=== PATIENT | male | born 1975 | race African-American/Black ===

== ENCOUNTER 2016-10-31 17:05 | Emergency (ER) | payer OTHER ==
[2016-10-31 18:08] LABS: Hematocrit 44 % (42-52); Hemoglobin 13.8 g/dl (14.0-18.0); Mean Corpuscular HGB Conc 31 g/dl (31-36); Mean Corpuscular Hemoglobin 24 pg (27-31); Mean Corpuscular Volume 77 fL (80-94); Mean Platelet Volume 8 um3 (7.4-10.4); Red Blood Count 5.71 10^6/ul (4.0-5.4); Red Cell Distribution Width 14 % (10.5-15); White Blood Count 6.2 10^3/ul (3.5-10.8)
[2016-10-31 18:24] LABS: ALT 61 U/L (7-52); AST 28 U/L (13-39); Albumin 4.1 g/dL (3.2-5.2); Alkaline Phosphatase 72 U/L (34-104); Anion Gap 6 mmol/L (2-11); Blood Urea Nitrogen 17 mg/dL (6-24); C Reactive Protein 6.03 mg/L (< 5.00); CO2 Carbon Dioxide 28 mmol/L (22-32); Calcium 9.9 mg/dL (8.6-10.3); Chloride 100 mmol/L (101-111); EGFR African American 76.8 (>60); EGFR Non-African American 59.7 (>60); Globulin 3.3 g/dL (2-4); Glucose 101 mg/dL (70-100); Lipase < 10 U/L (11.0-82.0); Potassium 4.7 mmol/L (3.5-5.0); Sodium 134 mmol/L (133-145); Total Protein 7.4 g/dL (6.4-8.9)
--- NOTE | 2016-10-31 19:20 | RAD ---
Indication: Left flank pain CT of the abdomen and pelvis was performed without oral or IV contrast administration. Coronal and sagittal reconstructed images were obtained. Lung bases demonstrate right middle lobe consolidative changes. This may represent an right middle lobe atelectasis. No pleural fluid is identified. Heart is of normal size without evidence of pericardial effusion. Liver is normal size. No focal lesions or intrahepatic ductal dilatation is noted. Gallbladder demonstrates no calcified gallstones. Pancreas demonstrates no mass or pancreatic ductal dictation. Spleen is normal in size. No adrenal lesions are noted. The kidneys demonstrate no hydronephrosis. There is a low density lesion in the left kidney measuring up to 15 mm. The retroperitoneal lymphadenopathy is noted. No dilated loops of bowel are noted. The left ureter shows no evidence of hydroureter. CT of the pelvis demonstrates no evidence pelvic adenopathy. Urinary bladder is partially collapsed. No hernias are noted. No dilated loops of bowel are noted. The visualized bony structures are grossly unremarkable. IMPRESSION: There is suggestion of some right middle lobe atelectasis. No evidence of obstructive uropathy is noted.
[2016-10-31 19:54] VITALS: BP 125/79
--- NOTE | 2016-10-31 22:03 | ED ---
Herman Castro Salem, scribed for Eliceo Hatch MD on 10/31/16 at 1743 . Abdominal Pain/Male - HPI Summary HPI Summary: Patient is a 41 y/o M who presents to the ED per EMS with intermittent dull LLQ abd pain for the past 3 weeks. He reports intermittent diarrhea since onset, and N/V and gas this morning, but denies pain with urination. He states that pain is sometimes in his rectum and feels like he needs to use the bathroom. Per EMS, they were called for respiratory distress, but complaint was changed upon arrival. He states that he was recently seen at [facility] where he had a stool sample examined and is yet to hear results. Pt was also admitted for severe depression in [place] and put on Wellbutrin. - History of Current Complaint Chief Complaint: EDAbdPain Stated Complaint: PAIN UPPER LT QUAD Time Seen by Provider: 10/31/16 17:34 Hx Obtained From: Patient Onset/Duration: Gradual Onset, Lasting Weeks, Still Present Timing: Intermittent Severity Initially: Moderate Severity Currently: Moderate Pain Intensity: 6 Pain Scale Used: 0-10 Numeric Location: Discrete At: LUQ, Discrete At: LLQ, Other - Rectum. Radiates: No Character: Dull Aggravating Factor(s): Nothing Alleviating Factor(s): Nothing Associated Signs And Symptoms: Positive: Nausea, Vomiting, Diarrhea - Allergies/Home Medications Allergies/Adverse Reactions: Allergies Allergy/AdvReac Type Severity Reaction Status Date / Time No Known Allergies Allergy Verified 03/18/16 18:43 PMH/Surg Hx/FS Hx/Imm Hx Endocrine/Hematology History: Denies: Hx Diabetes, Hx Thyroid Disease Cardiovascular History: Denies: Hx Hypertension Respiratory History: Denies: Hx Asthma, Hx Chronic Obstructive Pulmonary Disease (COPD) GI History: Denies: Hx Ulcer History: Denies: Hx Renal Disease Infectious Disease History: No Infectious Disease History: Reports: Hx Hepatitis - UNSURE OF TYPE Denies: Hx Human Immunodeficiency Virus (HIV), Traveled Outside the [place] in Last 30 Days - Family History Known Family History: Positive: Cardiac Disease - sister , Hypertension, Diabetes - Social History Alcohol Use: Weekly Hx Substance Use: No Substance Use Type: Reports: None Hx Tobacco Use: Yes Smoking Status (MU): Current Some Day Smoker Type: Cigarettes Amount Used/How Often: 4 CIGARETTES/ DAY Length of Time of Smoking/Using Tobacco: 15 YEARS Have You Smoked in the Last Year: Yes Review of Systems Positive: Other - Eye complaint. Positive: Abdominal Pain, Vomiting, Diarrhea, Nausea, Other - Gas. Genitourinary: Other - No pain with urination. Positive: no symptoms reported, other - Pain in rectum. All Other Systems Reviewed And Are Negative: Yes Physical Exam Triage Information Reviewed: Yes Vital Signs On Initial Exam: Initial Vitals Temp Pulse Resp BP Pulse Ox 99.0 F 92 18 130/84 100 10/31/16 17:12 10/31/16 17:12 10/31/16 17:12 10/31/16 17:12 10/31/16 17:12 Vital Signs Reviewed: Yes Appearance: Positive: Well-Appearing, No Pain Distress, Obese Skin: Positive: Warm, Skin Color Reflects Adequate Perfusion, Dry Head/Face: Positive: Normal Head/Face Inspection Eyes: Positive: Normal Neck: Positive: Supple, Nontender Respiratory/Lung Sounds: Positive: Clear to Auscultation, Breath Sounds Present Cardiovascular: Positive: RRR Abdomen Description: Positive: Soft, Other: - LLQ tenderness. Bowel Sounds: Positive: Present Musculoskeletal: Positive: Normal Neurological: Positive: Normal Psychiatric: Positive: Normal, Affect/Mood Appropriate - [place] Coma Scale Coma Scale Total: 15 Diagnostics - Vital Signs Vital Signs Temp Pulse Resp BP Pulse Ox 10/31/16 17:21 100 14 100 10/31/16 17:19 130/84 10/31/16 17:12 99.0 F 92 18 130/84 100 - Laboratory Lab Results: Lab Results 10/31/16 10/31/16 10/31/16 Range/Units 18:00 18:00 18:00 WBC 6.2 (3.5-10.8) 10^3/ul RBC 5.71 H (4.0-5.4) 10^6/ul Hgb 13.8 L (14.0-18.0) g/dl Hct 44 (42-52) % MCV 77 L (80-94) fL MCH 24 L (27-31) pg MCHC 31 (31-36) g/dl RDW 14 (10.5-15) % Plt Count 283 (150-450) 10^3/ul MPV 8 (7.4-10.4) um3 Neut % (Auto) 75.6 (38-83) % Lymph % (Auto) 17.4 L (25-47) % [place] % (Auto) 6.3 (1-9) % Eos % (Auto) 0.3 (0-6) % Baso % (Auto) 0.4 (0-2) % Absolute Neuts (auto) 4.7 (1.5-7.7) 10^3/ul Absolute Lymphs (auto) 1.1 (1.0-4.8) 10^3/ul Absolute Monos (auto) 0.4 (0-0.8) 10^3/ul Absolute Eos (auto) 0 (0-0.6) 10^3/ul Absolute Basos (auto) 0 (0-0.2) 10^3/ul Absolute Nucleated RBC 0 10^3/ul Nucleated RBC % 0 Sodium 134 (133-145) mmol/L Potassium 4.7 (3.5-5.0) mmol/L Chloride 100 L (101-111) mmol/L Carbon Dioxide 28 (22-32) mmol/L Anion Gap 6 (2-11) mmol/L BUN 17 (6-24) mg/dL Creatinine 1.31 H (0.67-1.17) mg/dL Est GFR ( Amer) 76.8 (>60) Est GFR (Non-Af Amer) 59.7 (>60) BUN/Creatinine Ratio 13.0 (8-20) Glucose 101 H (70-100) mg/dL Lactic Acid 1.5 (0.5-2.0) mmol/L Calcium 9.9 (8.6-10.3) mg/dL Total Bilirubin 0.30 (0.2-1.0) mg/dL AST 28 (13-39) U/L ALT 61 H (7-52) U/L Alkaline Phosphatase 72 (34-104) U/L C-Reactive Protein 6.03 H (< 5.00) mg/L Total Protein 7.4 (6.4-8.9) g/dL Albumin 4.1 (3.2-5.2) g/dL Globulin 3.3 (2-4) g/dL Albumin/Globulin Ratio 1.2 (1-3) Lipase < 10 L (11.0-82.0) U/L Result Diagrams: 10/31/16 18:00 10/31/16 18:00 Lab Statement: Any lab studies that have been ordered have been reviewed, and results considered in the medical decision making process. - CT Abd/pelvis CT Interpretation Completed By: Radiologist - IMPRESSION: There is suggestion of some right middle lobe atelectasis. No evidence of obstructive uropathy is noted. Re-Evaluation - Re-Evaluation First Eval Re-Evaluation Time: 19:35 Comment: Reviewed labs and imaging with pt. Abdominal Pain Fem Course/Dx - Course Course Of Treatment: Mr. Whaley presented with vague abdominal pain that was in the LLQ for several weeks. His W/U was negative including CT and he was D/C' d to F/U. - Diagnoses Provider Diagnoses: Abdominal pain Discharge - Discharge Plan Condition: Stable Disposition: HOME Patient Education Materials: Abdominal Pain (ED) Referrals: [facility] [place] [facility] [Outside] Additional Instructions: Please follow up with [facility] [place] [facility]. The documentation as recorded by the Herman de souza Salem accurately reflects the service I personally performed and the decisions made by me, Eliceo Hatch MD.
== END 2016-10-31 20:18 | disposition home or self-care (01) ==
LOC: ED 17:05
DX: R10.32 Left lower quadrant pain (principal); R19.7 Diarrhea, unspecified; R11.2 Nausea with vomiting, unspecified; Z11.4 Encounter for screening for human immunodeficiency virus [HIV]; Z72.0 Tobacco use
CPT/HCPCS: 36415; 74176; 80053; 83605; 83690; 85025; 86140; 86703; 99285

== ENCOUNTER 2016-11-17 17:13 | Emergency (ER) | payer OTHER ==
[2016-11-17] MEDS ORDERED: Cyclobenzaprine TAB* 10 MG PO ONE (18:03)
[2016-11-17] MEDS ORDERED: oxyCODONE/Acetamin 5/325 MG* TAB PO ONE (18:03)
--- NOTE | 2016-11-17 18:08 | ED ---
Back Pain - HPI Summary HPI Summary: 41M presents with back pain today. He states he was lifting weight yesterday and was leaning over not using proper lifting technique. He states last night his back started to hurt. He states that is is his lower back and greatest on right side. He took a couple doses of advil with some relief. He states the area is a tight feeling and sharp. He denies any pain into his legs. He denies any numbness or tingling. He is still able to ambulate. He denies any loss of bowel or bladder or saddle anaesthesia. He denies any fever. - History of Current Complaint Chief Complaint: EDBackInjuryPain Stated Complaint: BACK PAIN Time Seen by Provider: 11/17/16 17:41 Pain Intensity: 8 - Allergies/Home Medications Allergies/Adverse Reactions: Allergies Allergy/AdvReac Type Severity Reaction Status Date / Time No Known Allergies Allergy Verified 03/18/16 18:43 PMH/Surg Hx/FS Hx/Imm Hx Endocrine/Hematology History: Denies: Hx Diabetes, Hx Thyroid Disease Cardiovascular History: Denies: Hx Hypertension Respiratory History: Denies: Hx Asthma, Hx Chronic Obstructive Pulmonary Disease (COPD) GI History: Denies: Hx Ulcer History: Denies: Hx Renal Disease Infectious Disease History: Reports: Hx Hepatitis - UNSURE OF TYPE Denies: Hx Human Immunodeficiency Virus (HIV), Traveled Outside the [place] in Last 30 Days - Family History Known Family History: Positive: Cardiac Disease - sister , Hypertension, Diabetes - Social History Alcohol Use: Weekly Hx Substance Use: No Substance Use Type: Reports: None Hx Tobacco Use: Yes Smoking Status (MU): Current Some Day Smoker Type: Cigarettes Amount Used/How Often: 4 CIGARETTES/ DAY Length of Time of Smoking/Using Tobacco: 15 YEARS Have You Smoked in the Last Year: Yes Review of Systems Negative: Fever Negative: Chest Pain Negative: Shortness Of Breath Positive: Myalgia - back pain All Other Systems Reviewed And Are Negative: Yes Physical Exam Triage Information Reviewed: Yes Vital Signs On Initial Exam: Initial Vitals Temp Pulse Resp BP Pulse Ox 97.2 F 73 17 112/61 100 11/17/16 17:27 11/17/16 17:27 11/17/16 17:27 11/17/16 17:27 11/17/16 17:27 Vital Signs Reviewed: Yes Appearance: Positive: Well-Appearing Skin: Positive: Warm, Dry Head/Face: Positive: Normal Head/Face Inspection Eyes: Positive: Normal, Conjunctiva Clear Respiratory/Lung Sounds: Positive: Clear to Auscultation, Breath Sounds Present Cardiovascular: Positive: Normal, RRR Musculoskeletal: Positive: Limited @ - back due to pain, Other - no midline tenderness, greatest on right side of lower back, neg SLR, good pulses Neurological: Positive: Sensory/Motor Intact Diagnostics - Vital Signs Vital Signs Temp Pulse Resp BP Pulse Ox 11/17/16 17:27 97.2 F 73 17 112/61 100 - Laboratory Lab Statement: Any lab studies that have been ordered have been reviewed, and results considered in the medical decision making process. Back Pain Course/Dx - Course Course Of Treatment: 41M presents with back pain today. He states he was lifting weight yesterday and was leaning over not using proper lifting technique. He states last night his back started to hurt. He states that is is his lower back and greatest on right side. He took a couple doses of advil with some relief. He states the area is a tight feeling and sharp. He denies any pain into his legs. He denies any numbness or tingling. He is still able to ambulate. on exam no midline tenderness, tenderness greatest on right side of back, neg SLR. discussed does not want imaging. will treat with muscle relaxer and steriod and told to continue advil. patient understands and agrees with plan. - Diagnoses Differential Diagnosis/HQI/PQRI: Positive: Herniated Disc, Strain, Sprain Provider Diagnoses: Back pain Discharge - Discharge Plan Condition: Good Disposition: HOME Prescriptions: Cyclobenzaprine TAB* [Flexeril 10 MG TAB*] 10 mg PO TID PRN #9 tab PRN Reason: Pain Methylprednisolone [Medrol Dosepak 4 MG*] 4 mg PO .SEE PIPPA INSTRUCTION #1 packet Patient Education Materials: Back Pain (ED) Referrals: [facility] [Outside] Additional Instructions: Follow directions on package for Medrol pack Take muscle relaxers three times a day for 3 days Use ibuprofen or Tylenol for pain every 6 hours ice/heat area, move as much as possible Establish care with primary care physician Return to ED if develop any new or worsening symptoms
[2016-11-17 18:16] VITALS: BP 113/77
== END 2016-11-17 18:19 | disposition home or self-care (01) ==
LOC: ED 17:13
DX: M54.9 Dorsalgia, unspecified (principal); F17.210 Nicotine dependence, cigarettes, uncomplicated
CPT/HCPCS: 99282; A9270-GY

== ENCOUNTER → 2017-01-16 18:55 | Emergency (ER) | payer OTHER ==
[~2017-01-16 18:55] MED LIST: Raltegravir* 400 MG TAB PO ONE; Tenofovir/Emtricitabine(*) TAB PO ONE
[2017-01-16 21:39] VITALS: BP 141/83
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
== END | disposition left against medical advice (07) ==
LOC: EDBD → ED 18:55 → MERGE 18:55
DX: S41.031A Puncture wound without foreign body of right shoulder, initial encounter (principal); F19.10 Other psychoactive substance abuse, uncomplicated; W46.0XXA Contact with hypodermic needle, initial encounter; Y93.9 Activity, unspecified; Y92.9 Unspecified place or not applicable
CPT/HCPCS: 99282